=== PATIENT | female | born 2005 | race Hispanic/Latino ===

== ENCOUNTER 2025-01-11 07:38 | Outpatient (CLI) | payer OTHER ==
[2025-01-11] MEDS ORDERED: Iopamidol 300 61% 100 ML VIAL FS ONE (11:32)
== END 2025-01-11 07:39 | disposition home or self-care (01) ==
LOC: CSHCT 07:38
PROVIDERS: ATTEND Student in an Organized Health Care Education/Training Program
DX: E24.9 Cushing's syndrome, unspecified (principal); K76.0 Fatty (change of) liver, not elsewhere classified; K42.9 Umbilical hernia without obstruction or gangrene
CPT/HCPCS: 74170